=== PATIENT | male | born 1965 | race Caucasian/White ===

== ENCOUNTER 2019-05-18 10:06 | Observation (INO) | payer OTHER, BC ==
[2019-05-18] MEDS ORDERED: fentaNYL 100 MCG/2 ML SDV IVPUSH ONE (10:41)
[2019-05-18] MEDS ORDERED: fentaNYL 100 MCG/2 ML SDV ONE (10:42)
[2019-05-18] MEDS ORDERED: Sodium Chloride 0.9% 10 ML Syringe FLUSH ONE (10:49)
[2019-05-18] MEDS ORDERED: Iopamidol 612 MG/ML 100 ML Bottle IVPUSH ONE (10:49)
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
--- NOTE | 2019-05-18 11:50 | CT ---
CT abdomen and pelvis Technique: Multiple axial sections were obtained from above the dome of the diaphragm inferiorly through the pubic symphysis. Intravenous contrast was utilized. No oral contrast has been given. Delayed images were also obtained through the bladder. Findings: Visualized lung bases show nothing acute. Fatty infiltration is noted within the liver. No focal abnormality is appreciated within the liver. Spleen appears within normal limits. Adrenal glands show no nodule. Pancreas is within normal limits. Gallbladder contains no calcified gallstones. Kidneys show evidence of cysts. Small cortical defect is noted within the mid and posterior left kidney most likely representing previous scar. No acute finding is appreciated within either kidney. Delayed images shows contrast within the distal ureters and within the bladder. Aorta shows no aneurysm. No retroperitoneal adenopathy or mesenteric abnormalities are seen. Diverticuli are seen within the sigmoid and descending colon without diverticulitis. No free fluid or inflammatory change is appreciated. Appendix is not visualized with certainty. Bone window settings were reviewed which shows a fracture within the vertebral body of T12 with mild endplate compression deformities as well as fracture within the vertebral body isolating the anterior and superior endplate. No extension into the posterior arch is seen. Small fat-containing umbilical hernia is noted. Impression: 1. Fracture within the vertebral body of T12 as noted above. No extension into the posterior vertebral arch is seen. 2. Other findings believed to be incidental. Nothing acute is otherwise seen on CT study of the abdomen and pelvis. Diagnostic code #3 Study was dictated in MDT
--- NOTE | 2019-05-18 12:00 | CT ---
CT cervical spine Technique: Multiple axial sections were obtained from above C1 in inferiorly to the bottom of T3. Reconstructed sagittal and coronal images were reviewed. Findings: Vertebral body heights and disc spaces are maintained. Minimal scattered degenerative apophyseal change is noted. Mild degenerative change is noted between the dens and anterior arch of C1. No fracture is seen. No bony central or bony neural foraminal stenosis is seen. Ligamentum nuchal calcification is seen. No abnormal subluxation is seen. Impression: 1. Mild degenerative change. 2. Nothing acute is appreciated on CT study of the cervical spine. Diagnostic code #2 Study was dictated in MDT
--- NOTE | 2019-05-18 12:07 | CR ---
Left knee: 4 views of the left knee were obtained. Comparison: No prior knee exam. Medial and lateral joint spaces are maintained in height. No joint effusion is seen. No fracture or other bony abnormality is appreciated. Impression: 1. No abnormality is identified on left knee exam. Diagnostic code #1 Study was dictated in MDT
--- NOTE | 2019-05-18 12:07 | CR ---
Left elbow: 4 views left elbow were obtained. Comparison: No prior left elbow study. Joint spaces are preserved. Small calcification is noted off the olecranon process possibly due to an acute small chip fracture. Soft tissue swelling is noted in this area. No joint effusion is seen. Impression: 1. Possible chip fracture off the tip of the olecranon process. 2. Soft tissue swelling. 3. Left elbow study is otherwise unremarkable. Diagnostic code #3 Study was dictated in MDT
--- NOTE | 2019-05-18 12:08 | CR ---
Chest: Portable view of the chest was obtained. Comparison: No prior chest imaging is available. Heart size is normal. Tortuous thoracic aorta is seen. Lungs are clear with no acute parenchymal change. No acute osseous finding is appreciated. Subsequently seen left clavicle fracture not well identified on this study. Impression: 1. Nothing acute is appreciated on supine chest x-ray. Diagnostic code #1 Study was dictated in MDT
--- NOTE | 2019-05-18 12:08 | CR ---
Left shoulder: 3 views of the left shoulder were obtained. Comparison: No prior left shoulder study. No fracture, dislocation or other bony abnormality is appreciated. Impression: 1. No abnormality is appreciated on left shoulder study. Diagnostic code #1 Study was dictated in MDT
--- NOTE | 2019-05-18 12:08 | CR ---
Pelvis: AP view of the pelvis was obtained. Comparison: No prior pelvis exam. Joint spaces within both hips are maintained. Joint spaces within both hips are maintained. Surgical clips are seen within the medial right thigh. Vasectomy clips are also noted. No discrete fracture or other abnormality is seen. Impression: 1. Nothing acute is appreciated on AP pelvis study. Diagnostic code #2 Study was dictated in MDT
--- NOTE | 2019-05-18 12:08 | CR ---
Left humerus: 2 views of the left humerus were obtained. Comparison: No prior humerus study. No discrete fracture or other bony abnormality is appreciated. Impression: 1. No abnormality is appreciated on 2 view left humerus study. Diagnostic code #1 Study was dictated in MDT
[2019-05-18] MEDS ORDERED: Diphtheria,Pertussis(Acell),Tetanus Vaccine 0.5 ML Syringe IM ONE (12:24)
[2019-05-18] MEDS ORDERED: Lidocaine 1% 30 ML SDV INJECT ONE (12:35)
[2019-05-18] MEDS ORDERED: HYDROmorphone 0.5 MG/0.5 ML Syringe IVPUSH ONE (13:15)
--- NOTE | 2019-05-18 13:57 | CT ---
Head CT Technique: Multiple axial sections through the brain were obtained. Intravenous contrast was not utilized. Comparison: No prior intracranial imaging is available. Findings: Ventricles along with basal cisterns and sulci over the convexities are within normal limits for the patient's age. No abnormal parenchymal densities are seen. No evidence of intracranial hemorrhage. No midline shift or mass effect is appreciated. Mild mucosal thickening is seen within the ethmoid and frontal sinuses. No air- fluid levels are seen within the paranasal sinuses. Mastoid sinuses are clear. Soft tissue swelling is seen within the posterior left scalp with probable scalp injury. No acute calvarial abnormality is appreciated. Impression: 1. Soft tissue swelling within the posterior left scalp with probable scalp injury. 2. Mucosal thickening within the ethmoid and frontal sinuses most likely pre- existing and chronic. 3. No acute intracranial abnormality is appreciated. Diagnostic code #2 Study was dictated in MDT MTDD
--- NOTE | 2019-05-18 13:58 | CT ---
CT left shoulder Technique: Multiple axial sections through the left shoulder were obtained. Reconstructed coronal and sagittal images were obtained. Findings: Fracture is noted within the left clavicle. This involves the clavicular shaft. No scapular fracture is identified. Proximal humerus appears unremarkable. Visualized left upper ribs are intact. Impression: 1. Nondisplaced fracture within the shaft of the left clavicle. 2. No additional abnormality is appreciated on CT study of the left shoulder. Diagnostic code #3 Study was dictated in MDT MTDD
[2019-05-18] MEDS ORDERED: Docusate Sodium 100 MG Cap PO PRN (14:21)
[2019-05-18] MEDS ORDERED: Ondansetron 4 MG Tab.DIS PO PRN (14:21)
[2019-05-18] MEDS: Cyclobenzaprine 10 MG Tab PO PRN (14:58)
[2019-05-18] MEDS: Lactated Ringers 1,000 ML IV SCH (16:34)
[2019-05-18] MEDS: oxyCODONE 5 MG Tab PO PRN ×2 (16:40→20:15)
[2019-05-18] MEDS: Acetaminophen 325 MG Tab PO PRN ×2 (16:40→20:14)
[2019-05-19] MEDS: oxyCODONE 5 MG Tab PO PRN ×5 (01:51→18:43)
[2019-05-19] MEDS: Acetaminophen 325 MG Tab PO PRN ×4 (01:51→18:43)
[2019-05-19] MEDS: Cyclobenzaprine 10 MG Tab PO PRN ×2 (08:24→16:44)
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
[2019-05-19] MEDS: Lactated Ringers 1,000 ML IV SCH (14:18)
[2019-05-20] MEDS: Acetaminophen 325 MG Tab PO PRN ×2 (03:50→10:56)
[2019-05-20] MEDS: oxyCODONE 5 MG Tab PO PRN ×2 (03:51→10:55)
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
[2019-05-20] MEDS: Cyclobenzaprine 10 MG Tab PO PRN (10:55)
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
== END 2019-05-20 11:20 | disposition home or self-care (01) ==
LOC: JD.ED 10:06 → JD.MS 13:40 → OBSVTOIN 14:22 → INTOOBSV 14:22
PROVIDERS: ADMIT Surgery; ATTEND Surgery
DX: S22.080A Wedge compression fracture of T11-T12 vertebra, initial encounter for closed fracture (principal); S42.025A Nondisplaced fracture of shaft of left clavicle, initial encounter for closed fracture; S01.01XA Laceration without foreign body of scalp, initial encounter; K21.9 Gastro-esophageal reflux disease without esophagitis; Z79.82 Long term (current) use of aspirin; Z79.899 Other long term (current) drug therapy; Z23 Encounter for immunization; V59.9XXA Occupant (driver) (passenger) of pick-up truck or van injured in unspecified traffic accident, initial encounter; Y92.410 Unspecified street and highway as the place of occurrence of the external cause
CPT/HCPCS: 12002; 36415; 70450; 71045; 72125; 72170; 73030; 73060; 73080; 73200; 73564; 74177; 80053; 80307; 85025; 85610; 86850; 86900; 86901; 90471; 90715; 93005; 96361; 96374; 96375; 97110; 97116; 97161; 99285; A9270; G0378; J1170; J2001; J3010; J7120; Q9967